=== PATIENT | male | born 1985 | race Caucasian/White ===

== ENCOUNTER 2017-11-28 12:03 | Emergency (ER) | payer MEDICAID ==
[2017-11-28] MEDS: ACETAMINOPHEN 325 MG TAB PO (14:40)
== END 2017-11-28 16:00 | disposition home or self-care (01) ==
LOC: FTE 12:03
DX: J10.1 Influenza due to other identified influenza virus with other respiratory manifestations (principal)
CPT/HCPCS: 71045; 87400; 99284-25